=== PATIENT | male | born 1935 | race Caucasian/White ===

== ENCOUNTER 2020-03-23 08:16 | Emergency (ER) | payer MEDICARE, OTHER ==
--- NOTE | 2020-03-23 09:40 | EDM.PDOC ---
ED HPI GENERAL MEDICAL PROBLEM - General Chief Complaint: Upper Extremity Injury/Pain Stated Complaint: RIGHT ELBOW PAIN Time Seen by Provider: 03/23/20 09:10 Source of Information: Reports: Patient History Limitations: Reports: No Limitations - History of Present Illness INITIAL COMMENTS - FREE TEXT/NARRATIVE: 84-year-old male with some mild tenderness and edema around his right elbow and now swelling over the dorsal aspect of the MP joint of the middle finger on right hand. No fevers or chills, pain is actually controlled and improving but the swelling on his hand developed in the last 24 hours so he wanted it checked. He is on Eliquis. It started in the middle of the night 2 nights ago when he pushed against his bed with his right arm and felt a sudden sharp pain in his right elbow. Since that time he has had some pain on the medial aspect of the elbow and some swelling, but now has less pain and has full range of motion. This morning he noticed some swelling around the MP joint of the right hand so came in. No fevers or chills, no significant redness or warmth of either area that is swollen. Onset: Unknown/Unsure (Symptoms started after hurting his elbow 2 nights ago) Associated Symptoms: Reports: No Other Symptoms Right Elbow Pain Score (Numeric/FACES): 5 - Related Data Allergies Allergy/AdvReac Type Severity Reaction Status Date / Time No Known Allergies Allergy Verified 03/23/20 08:48 Home Meds: Home Meds Amoxicillin 500 mg PO TID 03/23/20 [History] Apixaban [Eliquis] 5 mg PO DAILY 03/23/20 [History] Finasteride 5 mg PO DAILY 03/23/20 [History] Past Medical History Genitourinary History: Reports: Prostate Disorder Other Musculoskeletal History: right elbow discomfort after putting pressure on on Sunday while getting out of bed. Pain and a little red on elbow area. This morning woke up with red bump on right middle knuckle Oncologic (Cancer) History: Reports: Bladder Other Oncologic History: spot removed from bladder - Past Surgical History GI Surgical History: Reports: Appendectomy, Hernia, Inguinal Social & Family History - Tobacco Use Smoking Status *Q: Never Smoker Second Hand Smoke Exposure: No - Caffeine Use Caffeine Use: Reports: Coffee Other Caffeine Use: cup of coffee every day - Alcohol Use Days Per Week of Alcohol Use: 7 Number of Drinks Per Day: 2 Total Drinks Per Week: 14 - Recreational Drug Use Recreational Drug Use: No Review of Systems - Review of Systems Review Of Systems: See Below Constitutional: Denies: Fever Respiratory: Reports: No Symptoms Cardiovascular: Reports: No Symptoms GI/Abdominal: Reports: No Symptoms Genitourinary: Reports: No Symptoms Skin: Denies: Rash, Erythema Neurological: Denies: Paresthesia ED EXAM, GENERAL - Physical Exam Exam: See Below Exam Limited By: No Limitations General Appearance: Alert, No Apparent Distress Head: Atraumatic Respiratory/Chest: No Respiratory Distress Extremities: Other (Exam is otherwise limited to the right arm. The patient has some somewhat diffuse subcutaneous edema around the medial aspect of the elbow but is not warm or red, the elbow does not feel to have an effusion. He also has some soft tissue swelling around the MP joint on the back of the right hand middle finger but again not warm, it does not palpate intra-articular but actually around the outside of the joint.) Neurological: Alert, Oriented, No Motor/Sensory Deficits Psychiatric: Normal Affect, Normal Mood Skin Exam: Warm, Dry Course - Vital Signs Last Recorded V/S: Last Vital Signs Temp 97.7 F 03/23/20 08:52 Pulse 70 03/23/20 08:52 Resp 16 03/23/20 08:52 BP 153/103 H 03/23/20 08:52 Pulse Ox 93 L 03/23/20 08:52 - Re-Assessments/Exams Free Text/Narrative Re-Assessment/Exam: 03/23/20 09:52 I am not sure if these 2 are related but I think it is just soft tissue edema from straining of the elbow and I do not think treatment is necessary as he is getting better and there is no sign of infection. He does not remember an insect bite on the hand or other source of swelling. He is willing to give this a few days and if it is worsening, turns red or warm, he develops a fever or he has other concerns he will return right away. Departure - Departure Time of Disposition: 09:53 Disposition: Home, Self-Care 01 Clinical Impression: Strain of elbow Qualifiers: Encounter type: initial encounter Laterality: right Qualified Code(s): S46.911A - Strain of unspecified muscle, fascia and tendon at shoulder and upper arm level, right arm, initial encounter - Discharge Information Instructions: Elbow Sprain Referrals: PCP,None [Primary Care Provider] - Forms: ED Department Discharge Care Plan Goals: Continue activity as tolerated and recheck if swelling worsens especially if you develop a fever or increased pain. Sepsis Event Note (ED) - Evaluation Sepsis Screening Result: No Definite Risk - Focused Exam Vital Signs: Vital Signs Temp Pulse Resp BP Pulse Ox 03/23/20 08:52 97.7 F 70 16 153/103 H 93 L 03/23/20 08:47 97.7 F 70 16 153/103 H 93 L
== END 2020-03-23 09:55 | disposition home or self-care (01) ==
LOC: JP.ED 08:16
DX: S56.911A Strain of unspecified muscles, fascia and tendons at forearm level, right arm, initial encounter (principal); Z79.01 Long term (current) use of anticoagulants; X50.9XXA Other and unspecified overexertion or strenuous movements or postures, initial encounter
CPT/HCPCS: 99283

== ENCOUNTER 2022-02-08 14:02 | Emergency (ER) | payer MEDICARE | END 2022-02-08 15:40 | disposition home or self-care (01) | LOC: JP.ED 14:02 | DX: R31.0 Gross hematuria (principal); Z87.891 Personal history of nicotine dependence | CPT/HCPCS: 81001; 99282; 99283 ==